=== PATIENT | female | born 1940 | race Caucasian/White ===

== ENCOUNTER 2023-08-06 16:15 | Inpatient (IN) | payer MEDICARE, BC ==
[~2023-08-06 16:15] MED LIST: AMBIEN 5MG TABLE5 MG PO; AZULFIDINE500 MG/TAB PO; FERROUS SU325 MG/TAB PO; FOLIC ACID 40400 MCG PO; GINKGO4 PO; LIQUID MULTIVITAMIN PO; LUTEIN20 M1 PO; PROBIOTIC FORMU1 CAP PO
[2023-08-07] VITALS (8 sets, daily range): BP systolic 106–128; BP diastolic 65–77; PULSE 62–84; TEMP 97.5–98.6
[2023-08-07] MEDS ORDERED: COSOPT 2%-0.5%10 ML OS (08:24)
[2023-08-07] MEDS ORDERED: ELIQUIS 5MG PO (08:24)
[2023-08-07] MEDS ORDERED: LYRICA 75MG CAP75 MG PO (08:25)
[2023-08-07] MEDS ORDERED: NORCO 325 MG-51 TAB PO (08:27)
[2023-08-07] MEDS ORDERED: XALATAN EYE DROPS OS (08:28)
[2023-08-07] MEDS ORDERED: Sotalol 80 MG TAB PO BID PO SCH (09:00)
[2023-08-07] MEDS ORDERED: NS Flush 10 ML SYRINGE BID ICA SCH (09:00)
[2023-08-07] MEDS ORDERED: NS Flush 10 ML SYRINGE PRN ICA (09:00)
[2023-08-07] MEDS ORDERED: CALCIUM 600MG+D1 TAB PO (09:01)
[2023-08-07] MEDS ORDERED: GINKGO BILOBA40 M5 PO (09:02)
[2023-08-07] MEDS ORDERED: COMPLETE MULTI1 TAB PO (09:02)
[2023-08-07] MEDS ORDERED: OMEGA-31 SGL PO (09:03)
[2023-08-07] MEDS ORDERED: COLACE 100100 MG/CAP PO (09:04)
[2023-08-07 09:15] LABS: BASO # 0.1 K/mm3 (0.0-0.2); BASO % 0.7 % (0.0-2.0); EOS # 0.3 K/mm3 (0.0-0.7); EOS % 3.3 % (0.0-4.0); GRAN # 5.2 K/mm3 (1.4-6.5); GRAN % 67.6 % (42.2-75.2); HEMATOCRIT 38.3 % (37.0-47.0); LYMPH # 1.4 K/mm3 (1.2-3.4); LYMPH % 18.6 % (20.0-51.0); MEAN CELL VOLUME 97 fl (80.0-100.0); MEAN CORPUSCULAR HEMOGLOBIN 33 pg (27-31); MEAN CORPUSCULAR HGB CONC 34 g/dl (33.0-37.0); MEAN PLATELET VOLUME 10.6 fl (7.4-10.4); MONO # 0.7 K/mm3 (0.1-0.6); MONO % 9.4 % (1.7-9.3); PLATELET COUNT 284 K/mm3 (130-400); RED BLOOD COUNT 3.96 M/mm3 (4.10-5.30); REDCELL DISTRIBUTION WIDTH-CV 13.6 % (11.5-14.5)
[2023-08-07] MEDS ORDERED: LASIX 20MG TABL20 MG PO (09:24)
[2023-08-07 09:27] LABS: INR 1.4 (0.8-3.0)
--- NOTE | 2023-08-07 09:27 | NUR ---
material requirements worker met with patient to discuss discharge planning. She reports to live with her , Chaim [phone] in [place]. She states her PCP is Dr. Vargas and obtains medications from [facility] with no difficulties. She states her DPOA-HC is at home and lists her . Pt reports to be independent with ADLS and uses a cane and [employer] for DME. She has no concerns for mobility and intends to return home upon discharge. SW spoke with CALLIE Waldron who has no concerns for pt's mobility. Discharge Plan: home
--- NOTE | 2023-08-07 09:29 | NUR ---
0800-PT IS A DIRECT ADMIT TO FOR SOTALOL INITIATION. PT IS AXOX3. PT IS ON RA. PT'S VSS. PT AMBULATES WELL WITH WHEELED WALKER. PT ORIENTED TO ROOM AND FLOOR. RT CALLED FOR EKG. 0820-TELE PLACED ON PT. 0845-SPOKE WITH MARSHA LEDESMA WITH CARDIOILOGY REGARDING NPO STATUS. PT IS IN SR NOT AFIB. OKAY TO EAT AT THIS TIME. IV STARTED AND LABS SENT. PT UPDATED ON PLAN.
[2023-08-07] MEDS ORDERED: Ondansetron 4 MG/2 ML VIAL IV PRN (09:30)
[2023-08-07] MEDS ORDERED: Bisacodyl 5 MG TAB PO PRN (09:30)
[2023-08-07] MEDS ORDERED: Pregabalin 75 MG CAP PO PRN (09:30)
[2023-08-07] MEDS ORDERED: Magnes Hydrox (MOM) 80 MG/ML 30 ML CUP PO PRN (09:30)
[2023-08-07 09:40] LABS: ALBUMIN 3.4 g/dL (3.4-4.8); BILIRUBIN,TOTAL 0.8 mg/dL (0.2-1.2); CALCIUM 9.4 mg/dL (8.4-10.2); CREATININE, serum 0.63 mg/dL (0.57-1.11); MAGNESIUM 1.9 mg/dL (1.6-2.6); TOTAL PROTEIN 6.8 g/dl (6.2-8.1)
--- NOTE | 2023-08-07 10:47 | NUR ---
Initial visit; Patient very interesting. She shared her "real life miracle" with Submarine Element Coordinator offering a [employer] testimony and a wonderful hug for Submarine Element Coordinator coming in to visit and share. Submarine Element Coordinator will keep Nida in her prayers.
--- NOTE | 2023-08-07 20:30 | NUR ---
UPON SHIFT ASSESSMENT, PATIENT WAS AXO X4 AND PLEASANT. SHE DENIES CHEST PAIN OR SOA AT THIS TIME. LT FOREARM IV FLUSHED. VS ARE WNL AND TELE NS. STATES NO NEEDS AT THIS TIME
[2023-08-07] MEDS ORDERED: Apixaban 5 MG TAB PO SCH (21:00)
[2023-08-07] MEDS ORDERED: Latanoprost 0.005% Ophth Soln 2.5 ML BOTTLE OP SCH (21:00)
[2023-08-07] MEDS ORDERED: Docusate Sodium 100 MG CAP PO SCH (21:00)
[2023-08-07] MEDS ORDERED: Melatonin 3 MG TAB PO PRN (21:00)
--- NOTE | 2023-08-07 21:26 | NUR ---
Patient brought in own meds from home to be dispensed while admitted here. Meds were taken to pharamacy per patient report for labeling. Patient own meds were not labeled and placed in bin. New eye drops were placed in bin and patient fears billing concerns. Patient education was provided on certain meds need to placed in pyxis therfore cannot come from home. Pharamcy closed will pass to dayshift.
[2023-08-08] VITALS (12 sets, daily range): BP systolic 98–119; BP diastolic 58–70; PULSE 59–77; TEMP 97.5–98.5
[2023-08-08 06:53] LABS: BASO # 0.1 K/mm3 (0.0-0.2); BASO % 0.9 % (0.0-2.0); EOS # 0.3 K/mm3 (0.0-0.7); EOS % 4.9 % (0.0-4.0); GRAN # 3.9 K/mm3 (1.4-6.5); GRAN % 58.8 % (42.2-75.2); HEMATOCRIT 37.8 % (37.0-47.0); HEMOGLOBIN 12.8 g/dl (12.5-16.0); LYMPH # 1.7 K/mm3 (1.2-3.4); LYMPH % 26.1 % (20.0-51.0); MEAN CELL VOLUME 96 fl (80.0-100.0); MEAN CORPUSCULAR HEMOGLOBIN 33 pg (27-31); MEAN CORPUSCULAR HGB CONC 34 g/dl (33.0-37.0); MEAN PLATELET VOLUME 10.8 fl (7.4-10.4); MONO # 0.6 K/mm3 (0.1-0.6); PLATELET COUNT 259 K/mm3 (130-400); RED BLOOD COUNT 3.94 M/mm3 (4.10-5.30); REDCELL DISTRIBUTION WIDTH-CV 13.5 % (11.5-14.5)
[2023-08-08 07:05] LABS: CALCIUM 8.9 mg/dL (8.4-10.2); CREATININE, serum 0.6 mg/dL (0.57-1.11)
[2023-08-08] MEDS ORDERED: Omega-3 Fatty Acid Esters (OTC) 1,000 MG CAP PO SCH (09:00)
[2023-08-08] MEDS ORDERED: Furosemide 20 MG TAB PO SCH (09:00)
[2023-08-08] MEDS ORDERED: Calcium Carb/Vit D3 500 mg-200 Units TAB PO SCH (09:00)
[2023-08-08] MEDS ORDERED: Dorzolamide/Timolol 2-0.5% Ophth Soln 10 ML BOTTLE OP SCH (09:00)
--- NOTE | 2023-08-08 09:55 | NUR ---
Assessment complete. Sitting up in bed during bedside report, just showered. Now patient is resting in bed. Pleasant and cooperative. Has concerns about not taking her own medications and the cost/charge of taking medication provided from the hospital. Denies pain or needs.
--- NOTE | 2023-08-08 13:35 | NUR ---
Lurdes Duran, RN with cardiology reported to this nurse that patient may take her own home medication. Jeanette with pharmacy is speaking with patient at this time. All patient's home medications are currently in the pharmacy.
--- NOTE | 2023-08-08 19:40 | NUR ---
Pt now taking her own home medications. Reported headache this afternoon and denied offer for ice pack or percocet. Pt requested coffee with a snack. During bedside report patient reported that her headache is now returning. Bedside report given to Sandrita Saini and she is going to call provider for alternative medication for headache. Pt resting in bed. Denies pain or needs.
--- NOTE | 2023-08-08 20:30 | NUR ---
UPON SHIFT ASSESSMENT, PATIENT WAS AXO X4 AWAKE IN BEDSIDE RECLINER. SHE DENIES CHEST PAIN AND SOA, HOWEVER SHE C/O 3/10 HEADACHE BUT REFUSES PRN PAIN MEDS. VS ARE WNL AND TELE IS CURRENTLY NS. SOTALOL DOSE HAS BEEN REDUCED PER ORDERS TO 60 MG D/T PROLONGED 1ST DEGREE HB/PROLONGED P WAVE. PATIENT ALSO C/O OF INSOMNIA THE NIGHT BEFORE. THIS NURSE OFFERED HER PRN LYRICA AND MELATONIN. PATIENT STSTED, "I'M GOING TO WAIT AND SEE HOW IT GOES TONIGHT." CALL LIGHT WITHIN REACH
[2023-08-08] MEDS ORDERED: Patient's Own Medication Item PO SCH (21:00)
[2023-08-08] MEDS ORDERED: Patient's Own Medication Item OP SCH ×2 (21:00)
[2023-08-09] VITALS (8 sets, daily range): BP systolic 85–102; BP diastolic 51–66; PULSE 57–76; TEMP 97.5–98.5
--- NOTE | 2023-08-09 03:11 | NUR ---
PATIENT CONTINUES TO SLEEP PEACEFULLY-MELATONIN EFFECTIVE. VS WNL.
[2023-08-09 07:18] LABS: BASO # 0.1 K/mm3 (0.0-0.2); BASO % 0.7 % (0.0-2.0); EOS # 0.3 K/mm3 (0.0-0.7); EOS % 4.5 % (0.0-4.0); GRAN # 4.4 K/mm3 (1.4-6.5); GRAN % 63.1 % (42.2-75.2); HEMATOCRIT 41.2 % (37.0-47.0); HEMOGLOBIN 13.7 g/dl (12.5-16.0); LYMPH # 1.7 K/mm3 (1.2-3.4); LYMPH % 24.6 % (20.0-51.0); MEAN CELL VOLUME 98 fl (80.0-100.0); MEAN CORPUSCULAR HEMOGLOBIN 33 pg (27-31); MEAN CORPUSCULAR HGB CONC 33 g/dl (33.0-37.0); MEAN PLATELET VOLUME 10.9 fl (7.4-10.4); MONO # 0.5 K/mm3 (0.1-0.6); MONO % 6.8 % (1.7-9.3); PLATELET COUNT 279 K/mm3 (130-400); RED BLOOD COUNT 4.22 M/mm3 (4.10-5.30); REDCELL DISTRIBUTION WIDTH-CV 13.6 % (11.5-14.5)
[2023-08-09 07:26] LABS: CALCIUM 9.2 mg/dL (8.4-10.2); CREATININE, serum 0.63 mg/dL (0.57-1.11); POTASSIUM 4.6 mEq/L (3.5-4.5)
[2023-08-09] MEDS ORDERED: Patient's Own Medication Item PO SCH (09:00)
[2023-08-09] MEDS ORDERED: 1/2 NS 500 ML IV ONE (10:15)
[2023-08-09] MEDS ORDERED: CEPHALEXIN500 M1 PO (11:40)
[2023-08-09] MEDS ORDERED: BETAPACE 120MG120 MG PO (11:40)
--- NOTE | 2023-08-09 12:08 | NUR ---
Data: Follow-up visit requested by Hospital Prestidigitator. Patient had had a headache and was lying in bed receiving IV medications. Patient stated that she will be discharged today. Assessment: Patient anticipating being discharged. Plan of Care: Prestidigitator prayed for continued healing and no pain. Patient thanked Prestidigitator for the visit.
--- NOTE | 2023-08-09 13:57 | NUR ---
Patient alert and oriented x4. Shift assessment complete this morning, patient denies pain. Heart rhythm regular as well as heart rate, BP noted to be low at 85/51. Cardiology notified. Manual re-check perfomed and noted to be 102/60. 500ml bolus ordered by cardiology and administered. Patient had loop recorder placed at bedside by cath lab technologist team. Dressing CDI.
--- NOTE | 2023-08-09 14:02 | NUR ---
Discharge instructions discussed with patient including follow-up appointment, new medications, and education packets. Discussed loop recorder incision site care. Patient verbalized understanding. IV discontinued to left wrist with no complications. Telemetry off. Patient's home medications returned from pharmacy. Patient escorted to 's car by staff via ambulation.
== END 2023-08-09 13:30 | disposition home or self-care (01) | DRG 262 ==
LOC: MEDICAL 08-07 07:43
PROVIDERS: ADMIT Internal Medicine Cardiovascular Disease
PROC: 0JH632Z Insertion of Monitoring Device into Chest Subcutaneous Tissue and Fascia, Percutaneous Approach (ICD-10-PCS; principal; 2023-08-09)
DX: I48.0 Paroxysmal atrial fibrillation (principal); I34.0 Nonrheumatic mitral (valve) insufficiency; I44.0 Atrioventricular block, first degree; I44.7 Left bundle-branch block, unspecified; Z88.6 Allergy status to analgesic agent; Z95.818 Presence of other cardiac implants and grafts; Z88.5 Allergy status to narcotic agent; Z88.8 Allergy status to other drugs, medicaments and biological substances